=== PATIENT | male | born 1955 | race Caucasian/White ===

== ENCOUNTER 2023-08-15 18:43 | Emergency (ER) | payer MEDICAID ==
[~2023-08-15] VITALS: Ht 172.7 cm; Wt 79.4 kg
[2023-08-15 18:47] VITALS: BP_SYST 149; PULSE 82; RESP 20; TEMP 97.3; O2SAT 99
[2023-08-15] MEDS: predniSONE 20 MG TABLET PO ONE (19:12)
[2023-08-15] MEDS: KETOROLAC TROMETHAMINE 60 MG/2 ML VIAL IM ONE (19:18)
[2023-08-15] MEDS ORDERED: HYDR-3917 PO (20:00)
[2023-08-15] MEDS ORDERED: METH-634 PO (20:00)
[2023-08-15] MEDS ORDERED: IBUP-1969 PO (20:00)
[2023-08-15] MEDS ORDERED: PRED20TA PO (20:00)
[2023-08-15] MEDS: MORPHINE 2 MG/ML INJ. SYRINGE IM ONE (20:03)
[2023-08-15 20:35] VITALS: BP_SYST 147; PULSE 76; RESP 18; TEMP 97.6; O2SAT 100
== END 2023-08-15 20:35 | disposition home or self-care (01) ==
LOC: SED 18:43
DX: M54.30 Sciatica, unspecified side (principal); M54.50 Low back pain, unspecified; Z79.899 Other long term (current) drug therapy
CPT/HCPCS: 99284; 72100; 96372; J7512; J1885; J2270